=== PATIENT | male | born 1990 | race Two or more races ===

== ENCOUNTER 2024-02-01 22:27 | Emergency (ER) | payer MEDICAID, SELFPAY ==
[2024-02-01 22:39] VITALS: BP 102/60; PULSE 77; RESP 19; O2SAT 98; BMI 18.1
--- NOTE | 2024-02-02 02:04 | PC.NURSE ---
pt brought back to ED bed 18H , warp changer being done by security
--- NOTE | 2024-02-02 02:09 | PC.NURSE ---
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 pt refused to change management rest of clothes as reporting he is here for medical attention and does not seek detox through us as he has a bed set up tomorrow in [place]. pt was thoroughly searched by security. pt denies si/hi. recharger aware.
--- OUTSIDE RECORDS SUMMARY | 2024-02-02 02:28 | XMS_ITS ---
Author Organization [facility] Address [address], [place] [phone] Care Team Providers Care Sanipractic Physician Name Role Phone [facility] Primary Care Provider Un available Charo Gruber Unavailable REASON FOR VISIT housing Encounters Encounter Location Date Provider Diagnosis [facility] [address] [place], [place] [phone] 11/22/2023 Charo Gruber PLAN OF TREATMENT No Information
--- OUTSIDE RECORDS SUMMARY | 2024-02-02 02:28 | XMS_ITS ---
Author Organization [facility] Address [address] [place], [place] [phone] Care Team Providers Care Funding Coordinator Name Role Phone [facility] Primary Care Provider Un available Charo Gruber Unavailable Encounters Encounter Location Date Provider Diagnosis [facility] [address] [place], [place] [phone] 11/03/2023 Charo Gruber PLAN OF TREATMENT No Information
--- OUTSIDE RECORDS SUMMARY | 2024-02-02 02:28 | XMS_ITS | Continuity of Care Document ---
Author Organization [facility] Address [address] [place] [phone] Care Team Providers Care Laborer Wharf Name Role Phone Not on Staff, PCP Primary Care Physician Unavail able Encounter [facility] Date(s): 12/12/23 - 12/13/[address] [address]- Discharge Disposition: A-D/C Walkout Attending Physician: Not on Staff, Attending MD Admitting Physician: Not on Staff, Admitting MD Referring Physician: Not on Staff, Referring MD Allergies, Adverse Reactions, Alerts No Known Allergies Vital Signs Most recent to oldest [Reference Range]: 1 2 Oxygen Saturation [94-100 %] 99 % (12/13/23 3:18 AM) 99 % (12/12/23 10:58 PM) Pulse Rate [55-90 bpm] 64 bpm (12/13/23 3:18 AM) 76 bpm (12/12/23 10:58 PM) Blood Pressure [90-138/55-84 mm Hg] 114/ 64mm Hg (12/13/23 3:18 AM) 137/118mm Hg (12/12/23 10:58 PM) Respiratory Rate [16-30 br/min] 24 br/mi n (12/12/23 10:58 PM) Temperature [96.8-100.4 DegF] 98.5 DegF (12/13/23 3:18 AM) 98.3 DegF (12/12/23 10:58 PM) Mode of Delivery (Oxygen) Room air (12/12/23 10:58 PM) Blood pressure sites Arm, left (12/13/23 3:18 AM) Arm, left (12/12/23 10:58 PM) Temperature Route Oral (12/13/23 3:18 AM) Oral (12/12/23 10:58 PM) Dry Weight 69.5 kg (12/13/23 12:35 AM) 69.5 kg (12/12/23 10:58 PM) Patient Care team information Care Team Personnel Name: Not on Staff, PCP Position: [facility] Physician (General Medicine) Member Role: PCP
--- OUTSIDE RECORDS SUMMARY | 2024-02-02 02:28 | XMS_ITS | Patient Health Record ---
Author Organization [facility] Address [address], [place] [phone] Care Team Providers Care Dental Patient Coordinator Name Role Phone [facility] Primary Care Provider Un available Charo Gruber Unavailable [phone] Mary Portillo Unavailable [phone] REASON FOR REFERRAL No Information SOCIAL HISTORY Sex Assigned At : Social History Observation Description Sex Assigned At Unknown Encounters Encounter Location Date Provider Diagnosis [facility] [address] [place] [phone] 10/19/2023 Charo Gruber [facility] [address] [place] [phone] 11/03/2023 Charo Gruber [facility] [address] [place] [phone] 11/11/2023 Charo Gruber [facility] [address] [place] [phone] 11/22/2023 Charo Gruber [facility] [address], [place] [phone] 10/19/2023 Mary Portillo PLAN OF TREATMENT No Information Insurance Providers Payer Name Payer Address Payer Phone Subscriber Number Group Number Insured Name Patient Relationship to Insured Coverage Start Date Coverage End Date [place] [employer] C3 [address] [place], [place] [id number] Franc Stover Self - patient is the insured
--- OUTSIDE RECORDS SUMMARY | 2024-02-02 02:28 | XMS_ITS ---
Author Organization [facility] Address [address] [place], [place] [phone] Care Team Providers Care Director Of Nursing Name Role Phone [facility] Primary Care Provider Un available Charo Gruber Unavailable Encounters Encounter Location Date Provider Diagnosis [facility] [address] [place], [place] [phone] 11/11/2023 Charo Gruber PLAN OF TREATMENT No Information
--- NOTE | 2024-02-02 03:46 | ED.GENADULT ---
HPI - General Adult General Chief complaint: General Medical Stated complaint: flu like symptoms Time Seen by Provider: 02/02/24 03:46 History of Present Illness ED Provider: Dada PEREZ narrative: The patient is a 33-year-old male who reports that he has a history of IV heroin use. He says he has plans to go to a detox in [place] in the morning. He came to the emergency room because he does not want to use before going to the detox tomorrow morning. He had recently been hospitalized at [facility] for pneumonia. He feels he has gotten better from his pneumonia. He does not have any medical complaints. He hopes that he will be allowed to stay in the emergency room until around 06:00 this morning when he will take a bus to the detox facility. He could not tell me the name of the detox facility but he says that he knows how to get there by bus. Related Data Allergies Allergy/AdvReac Type Severity Reaction Status Date / Time No Known Allergies Allergy Verified 02/01/24 22:42 Review of Systems Review of Systems: Yes all other systems are reviewed and are negative [facility] Social History Social History Advance Directives: No Advance Directives Information Provided: Yes Do you have a plan to hurt others: No Plan Physical Exam ED Vital Signs: Vital Signs - 24 hr 02/01/24 22:39 02/02/24 03:54 02/02/24 07:30 Temperature 98.9 F 98 F Pulse Rate 77 60 65 Respiratory Rate 19 16 18 Blood Pressure 102/60 128/58 L 128/58 L Pulse Oximetry 98 97 97 Oxygen Delivery Method Room Air Room Air Room Air BMI result Body Mass Index 18.1 Const Other: The patient is a slim 33-year-old male who was awake and alert. He was sleeping. I was able to awake him to a normal mental status. He did not seem in acute distress. HENMN Head: Yes normal to inspection Face and sinus: Yes normal facial exam Mouth: Normal oral and palatal mucosa present and moist mucous membranes Eyes General: appearance normal, both eyes and all related structures Neck Neck: Yes full ROM Resp Effort & Inspection: normal respiratory effort Auscultation: clear to auscultation bilaterally Cardio Rate: regular rate Rhythm: regular rhythm Heart sounds: S1 normal heart sound present and S2 normal heart sound present GI Other: abdomen was soft, flat, and nontender. Skin Other: Skin was dry and unremarkable. Neuro Other: Patient was sleeping but awoke easily to a normal mental status. Cranial nerves are intact. He moves his extremities normally. He seemed steady on his feet. Extrem Other: No peripheral edema. Medical Decision Making Medical Decision Making [facility] Narrative: The patient is a 33-year-old male who says that he plans to go to a detox in [place] later today. He says that he has a bed available. He says that he last used heroin 2 days ago. He was offered Suboxone which he did not want. He did not want any testing. He has feels that he has recovered from his pneumonia. He said that he really just wanted a place to stay until the morning when he can take a bus the detox facility. He says he knows how to get to the detox facility by bus. He was observed. He seemed stable. He was discharged in the morning. Discharge Plan Discharge Clinical Impression: Substance use disorder Patient Disposition: Home, Self-Care Additional Instructions: Please follow through with your plans to go to detox today. Please work on getting a primary care doctor. It might be good to try the [facility]. Return to the emergency room if you feel significantly worse. Referrals: [facility] [Provider Group] Interventions: ED Discharge Assessment Last Done: 02/02/24 07:30 Discharge Date/Time: 02/02/24 07:32 Print Language: Occitan
[2024-02-02 03:54] VITALS: BP 128/58; PULSE 60; RESP 16; TEMP 37.2; O2SAT 97
--- NOTE | 2024-02-02 06:28 | PC.NURSE ---
pt refused needing medical attention and stated needed a place out of the cold overnight and heading to detox in AM. bus passes provided. pt currently sleeping again in cao, easily arousable. discharge paper given. charge aware.
[2024-02-02 07:30] VITALS: BP 128/58; PULSE 65; RESP 18; TEMP 36.6; O2SAT 97
--- NOTE | 2024-02-02 07:31 | PC.NURSE ---
Calm and cooperative, patient offers no complaints, received bus passes and dc paperwork from previous shift. Brought to decon to retrieve personal items , provided with food and fluids, gait steady
== END 2024-02-02 07:32 | disposition home or self-care (01) ==
PROVIDERS: Emergency Provider Emergency Medicine
DX: F19.988 Other psychoactive substance use, unspecified with other psychoactive substance-induced disorder (principal)
CPT/HCPCS: 99283